=== PATIENT | male | born 1995 | race Caucasian/White ===

== ENCOUNTER 2018-11-15 12:22 | Emergency (ER) | payer OTHER ==
--- NOTE | 2018-11-15 13:59 | EDPHY ---
H & P Stated Complaint: chest pain Time Seen by Provider: 11/15/18 13:50 HPI/ROS: CHIEF COMPLAINT: Chest pain HISTORY OF PRESENT ILLNESS: The patient is a 23-year-old healthy man who the comes to the emergency department complaining of chest pain for the last several weeks. He describes it as an achy sharp feeling that is reproduced by pain or movements or eating. Not worsened by exertion. No shortness of breath. He did have an upper respiratory type infection about 4 weeks ago that resolved but he has had residual mild cough. He smokes marijuana but not tobacco. No recent travel. No leg swelling pain. No recent procedures. He presented to an urgent care earlier today who obtained an EKG that showed early repolarization and they recommended he come here to the ER. No fevers. His cough is nonproductive. No difficulty breathing. Severity: Mild Modifying factors: Worsened by movement or palpation or eating REVIEW OF SYSTEMS: Constitutional: denies: chills, fever, recent illness, recent injury EENTM: denies: blurred vision, double vision, nose congestion Respiratory: denies: cough, shortness of breath Cardiac: See HPI denies: irregular heart rate, lightheadedness, palpitations Gastrointestinal/Abdominal: denies: abdominal pain, diarrhea, nausea, vomiting, blood streaked stools Genitourinary: denies: dysuria, frequency, hematuria, pain Musculoskeletal: denies: joint pain, muscle pain Skin: denies: lesions, rash, jaundice, bruising Neurological: denies: headache, numbness, paresthesia, tingling, dizziness, weakness Hematologic/Lymphatic: denies: blood clots, easy bleeding, easy bruising Immunologic/allergic: denies: HIV/AIDS, transplant 10 systems reviewed and negative except as noted EXAM: GENERAL: Well-appearing, well-nourished and in no acute distress. HEAD: Atraumatic, normocephalic. EYES: Pupils equal round and reactive to light, extraocular movements intact, sclera anicteric, conjunctiva are normal. ENT: TMs normal, nares patent, oropharynx clear without exudates. Moist mucous membranes. NECK: Normal range of motion, supple without lymphadenopathy or JVD. LUNGS: Breath sounds clear to auscultation bilaterally and equal. No wheezes rales or rhonchi. HEART: Regular rate and rhythm without murmurs, rubs or gallops. ABDOMEN: Soft, nontender, normoactive bowel sounds. No guarding, no rebound. No masses appreciated. BACK: No CVA tenderness, no spinal tenderness, step-offs or deformities EXTREMITIES: Normal range of motion, no pitting or edema. No clubbing or cyanosis. NEUROLOGICAL: Cranial nerves II through XII grossly intact. Normal speech, normal gait. 5/5 strength, normal movement in all extremities, normal sensation , normal reflexes PSYCH: Normal mood, normal affect. SKIN: Warm, dry, normal turgor, no visible rashes or lesions. Source: Patient Exam Limitations: No limitations - Personal History Current Tetanus/Diphtheria Vaccine: Unsure Current Tetanus Diphtheria and Acellular Pertussis (TDAP): Unsure - Medical/Surgical History Hx Asthma: No Hx Chronic Respiratory Disease: No Hx Diabetes: No Hx Cardiac Disease: No Hx Renal Disease: No Hx Cirrhosis: No Hx Alcoholism: No Hx HIV/AIDS: No Hx Splenectomy or Spleen Trauma: No Other PMH: denies - Family History Significant Family History: No pertinent family hx - Social History Smoking Status: Never smoked Alcohol Use: Sober Constitutional: Initial Vital Signs Temperature (C) 36.8 C 11/15/18 12:25 Heart Rate 61 11/15/18 12:25 Respiratory Rate 18 11/15/18 12:25 Blood Pressure 137/63 H 11/15/18 12:25 O2 Sat (%) 97 11/15/18 12:25 O2 Delivery Mode Room Air Allergies/Adverse Reactions: No Known Allergies Allergy (Verified 11/15/18 12:24) Home Medications: Medication Instructions Recorded NK [No Known Home Meds] 04/26/16 Medical Decision Making - Diagnostics EKG Interpretation: An EKG obtained and was read and documented in trace view. Please see trace view for full reading and report. Sinus rhythm, no acute ischemic changes, early repolarization consistent with body habitus. ED Course/Re-evaluation: The patient is PERC score is negative. He is extremely low risk for cardiac disease. His EKG does not show signs of pericarditis. He is afebrile and not an IV drug user and I doubt myocarditis or endocarditis. No fever, no murmur. His EKG shows benign early repolarization. His symptoms are very much consistent with costochondritis and are reproducible with palpation movement or eating. We discussed options. He decided that he would prefer not to perform lab work for further rule out. I agree that it is likely to be noncontributory. At this point he felt comfortable going home and declines further testing. I encouraged him to take ibuprofen for a few days. We discussed follow-up if his symptoms are not improving. We also discussed indications for returning to the emergency department. Differential Diagnosis: Partial list of the Differential diagnosis considered include but were not limited to; costochondritis, pleurisy, pericarditis, GERD and although unlikely based on the history and physical exam, I also considered acute coronary disease, dissection, aneurysm, myocarditis, endocarditis. I discussed these differential diagnoses and the plan with the patient as well as the usual and expected course. The patient understands that the diagnosis is provisional and that in medicine we are not always correct and that further workup is often warranted. Usual and customary warnings were given. All of the patient's questions were answered. The patient was instructed to return to the emergency department should the symptoms at all worsen or return, otherwise to followup with the physician as we discussed. Departure - Departure Disposition: Home, Routine, Self-Care Clinical Impression: Chest wall pain Condition: Fair Instructions: Chest Wall Pain (ED) Additional Instructions: Take ibuprofen three times daily as needed for pain Referrals: NONE *PRIMARY CARE P,. [Primary Care Provider] - As per Instructions Deepthi Bashir MD [Medical Doctor] - 2-3 days, if not improved
[2018-11-15 14:03] VITALS: BP 123/78
--- NOTE | 2018-11-15 14:04 | CPEKG ---
Test Reason : OPEN Blood Pressure : / mmHG Vent. Rate : 053 BPM Atrial Rate : 052 BPM P-R Int : 154 ms QRS Dur : 101 ms QT Int : 438 ms P-R-T Axes : -09 084 053 degrees QTc Int : [address] elev, probable normal early repol pattern Confirmed by Aravind Casas ([id number]) on 11/15/2018 2:03:49 PM Referred By: PHYSICIAN ED Confirmed By:Aravind Casas
== END 2018-11-15 14:08 | disposition home or self-care (01) ==
DX: R07.89 Other chest pain (principal)